=== PATIENT | female | born 1965 | race Caucasian/White ===

== ENCOUNTER 2024-03-08 18:32 | Emergency (ER) | payer SELFPAY ==
[2024-03-08] MEDS ORDERED: HYDROCODONE/APAP 5/325 MG TAB ONE (18:53)
--- NOTE | 2024-03-08 19:52 | RAD REPORT ---
EXAM DESCRIPTION: RAD - Femur Right - 03/08/2024 7:43 pm CLINICAL HISTORY: Leg pain FINDINGS: No fracture is seen. If patient continues to have symptoms to suggest an occult fracture then MRI would recommended
--- NOTE | 2024-03-08 19:53 | RAD REPORT ---
EXAM DESCRIPTION: RAD - Tib Fib Right - 03/08/2024 7:43 pm CLINICAL HISTORY: Right leg pain FINDINGS: No fracture is seen Large plantar calcaneal spur
--- NOTE | 2024-03-08 20:03 | ER ---
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 Coronavirus screen: Client denies travel out of the [place] in the last 14 days. At this time, the client does not indicate any symptoms associated with coronavirus-19. Ebola Screen: Patient denies travel to an Ebola-affected area in the 21 days before illness onset. Initial Sepsis Screen: Does the patient meet any 2 criteria? No. Patient's initial sepsis screen is negative. Does the patient have a suspected source of infection? No. Patient's initial sepsis screen is negative. Risk Assessment: Do you want to hurt yourself or someone else? Patient reports no desire to harm self or others. Onset of symptoms was March 08, 2024. 18:45 Method Of Arrival: Wheelchair ll1 18:45 Acuity: ELLEN 3 ll1 Triage Assessment: 18:47 General: Appears uncomfortable, Behavior is calm, cooperative, appropriate for age. ll1 Pain: Complains of pain in right leg Quality of pain is described as aching. Musculoskeletal: Circulation, motion, and sensation intact. Capillary refill < 3 seconds, Reports pain in right leg. Injury Description: Bruise. Historical: - Allergies: 18:49 Sulfa (Sulfonamide Antibiotics); ll1 18:49 Morphine; ll1 18:49 Dilaudid; ll1 18:49 Demerol; ll1 - PMHx: 18:49 Diabetes mellitus; chronic kidney; anoxic brain injury; ll1 - PSHx: 18:49 R eye SX; L knee SX x 2; R bicep repair; Tonsillectomy; hysterectomy; ll1 - Immunization history:: Adult Immunizations up to date. - Infectious Disease History:: Denies. - Social history:: Smoking status: Patient denies any tobacco usage or history of. Screenin:35 [facility] ED Fall Risk Assessment (Adult) History of falling in the last 3 months, tl4 including since admission Yes- single mechanical fall (1 pt) Confusion or Disorientation No (0 pts) Intoxicated or Sedated No (0 pts) Impaired Gait No (0 pts) Mobility Assist Device Used No (0 pt) Altered Elimination No (0 pt) Score/Fall Risk Level 0 - 2 = Low Risk Oriented to surroundings, Maintained a safe environment, Educated pt \T\ family on fall prevention, incl call for assistance when getting out of bed, Assessed \T\ reinforced patient's understanding of fall precautions. Abuse screen: Denies threats or abuse. Denies injuries from another. Nutritional screening: No deficits noted. Tuberculosis screening: No symptoms or risk factors identified. Assessment: 19:45 General: Appears in no apparent distress. Behavior is calm, cooperative. Neuro: Level tl4 of Consciousness is awake, alert, obeys commands, Oriented to person, place, time, situation, Moves all extremities. Full function. Cardiovascular: Capillary refill < 3 seconds Patient's skin is warm and dry. Respiratory: Airway is patent Respiratory effort is even, unlabored, Respiratory pattern is regular, symmetrical, Breath sounds are clear bilaterally. GI: No signs and/or symptoms were reported involving the gastrointestinal system. : No signs and/or symptoms were reported regarding the genitourinary system. EENT: No signs and/or symptoms were reported regarding the EENT system. Derm: No signs and/or symptoms reported regarding the dermatologic system. 20:34 Pain: Complains of pain in right leg. Musculoskeletal: Reports pain in right leg. tl4 20:36 Reassessment: Delay to discharge due to attempting to locate patient to give discharge tl4 paperwork. Unable to locate patient. Provider had given verbal discharge instructions to patient. Vital Signs: 18:48 BP 126 / 75; Pulse 80; Resp 17; Temp 97.5; Pulse Ox 98% on R/A; Height 5 ft. 6 in. ; ll1 Pain 7/10; 19:49 BP 115 / 76; Pulse 70; Resp 16; Pulse Ox 99% on R/A; tl4 18:48 Pain Scale: Adult ll1 ED Course: 18:36 Patient arrived in ED. mr 18:40 Rosalind Nuñez [facility]-C [facility]. kb 18:40 Bjorn Barajas MD is Attending Physician. kb 18:46 Triage completed. ll1 18:47 Arm band placed on Patient placed in an exam room, on a stretcher. ll1 19:45 Tib Fib Right XRAY In Process Unspecified. EDMS 19:45 Femur Right XRAY In Process Unspecified. EDMS 20:36 Patient has correct armband on for positive identification. Placed in gown. Bed in low tl4 position. Call light in reach. Side rails up X 1. Adult w/ patient. Provided Education on: ed process, call holder. Door closed. Noise minimized. Moved to private room. Warm blanket given. Pillow given. 20:36 No provider procedures requiring assistance completed. Patient did not have IV access tl4 during this emergency room visit. Administered Medications: 18:56 Drug: HYDROcodone-acetaminophen PO 5 mg-325 mg 1 tabs PO once {Note: RASS 0, pain ll1 710.} Route: PO; 20:32 Follow up: Response: No adverse reaction; Pain is decreased tl4 Medication: 20:35 VIS not applicable for this client. tl4 Outcome: 20:02 Discharge ordered by . paulette 20:36 Discharged to home tl4 20:36 Condition: stable 20:36 Discharge instructions given to patient, Instructed on discharge instructions, follow up and referral plans. Demonstrated understanding of instructions, follow-up care, 20:38 Patient left the ED. tl4 Signatures: Dispatcher [employer] Rosalind Jett, BIOINFORMATICS PROGRAMMER-C BIOINFORMATICS PROGRAMMER-Lala Min, Reg Reg mr SandhuLucio, RN RN ll1 Yusef Tapia RN RN tl4 Corrections: (The following items were deleted from the chart) 18:51 18:48 Resp 17bpm; Temp 97.5F; Height 5 ft. 6 in.; Pain 7/10, Adult; ll1 ll1
--- NOTE | 2024-03-08 20:03 | EDPHYS ---
Physician Documentation [facility] Name: Rimma Renee Age: 58 yrs Sex: Female : 1965 Arrival Date: 03/08/2024 Time: 18:32 Bed 9 Private MD: ED Physician Bjorn Barajas HPI: 03/08 20:01 This 58 yrs old Female presents to ER via Wheelchair with complaints of Fall Injury. kb 20:01 Pt is a 58 year old female who presents for right leg pain that started just lighter captain after kb missing last step on the stairs and falling. Denies any other pain. States she scraped her left leg but doesn't have pain there. . Historical: - Allergies: 18:49 Sulfa (Sulfonamide Antibiotics); ll1 18:49 Morphine; ll1 18:49 Dilaudid; ll1 18:49 Demerol; ll1 - PMHx: 18:49 Diabetes mellitus; chronic kidney; anoxic brain injury; ll1 - PSHx: 18:49 R eye SX; L knee SX x 2; R bicep repair; Tonsillectomy; hysterectomy; ll1 - Immunization history:: Adult Immunizations up to date. - Infectious Disease History:: Denies. - Social history:: Smoking status: Patient denies any tobacco usage or history of. ROS: 20:00 Constitutional: As per HPI kb Exam: 20:00 Constitutional: This is a well developed, well nourished patient who is awake, alert, kb and in no acute distress. Head/Face: Normocephalic, atraumatic. ENT: Moist Mucous membranes Cardiovascular: Regular rate Respiratory: Respirations even and unlabored. No increased work of breathing. Talking in full sentences Abdomen/GI: Soft, non-tender. No distention Skin: Warm, dry with normal turgor. Normal color. Neuro: Awake and alert, GCS 15, oriented to person, place, time, and situation. Moves all extremities. Normal gait. 20:00 Musculoskeletal/extremity: Extremities: grossly normal except: noted in the right leg: pain, tenderness, noted in the left burnett: abrasion, ROM: intact in all extremities, Circulation is intact in all extremities. Sensation intact. Weight bearing: can bear weight with assistance only, Vital Signs: 18:48 BP 126 / 75; Pulse 80; Resp 17; Temp 97.5; Pulse Ox 98% on R/A; Height 5 ft. 6 in. ; ll1 Pain 7/10; 19:49 BP 115 / 76; Pulse 70; Resp 16; Pulse Ox 99% on R/A; tl4 18:48 Pain Scale: Adult ll1 MDM: 18:40 Patient medically screened. kb 20:00 Differential diagnosis: abrasion, contusion, fracture, sprain, strain. Data reviewed: kb vital signs, nurses notes. Historians other than the Patient: Family Member: family. Counseling: I had a detailed discussion with the patient and/or guardian regarding the historical points, exam findings, and any diagnostic results supporting the discharge/admit diagnosis, radiology results, the need for outpatient follow up, a family practitioner, to return to the emergency department if symptoms worsen or persist or if there are any questions or concerns that arise at home. 03/08 18:49 Order name: Tib Fib Right XRAY; Complete Time: 19:58 kb 03/08 18:49 Order name: Femur Right XRAY; Complete Time: 19:53 kb Administered Medications: 18:56 Drug: HYDROcodone-acetaminophen PO 5 mg-325 mg 1 tabs PO once {Note: RASS 0, pain ll1 7/10.} Route: PO; 20:32 Follow up: Response: No adverse reaction; Pain is decreased tl4 Disposition: 03/09 08:59 Co-signature as Attending Physician, Bjorn Barajas MD I reviewed the patient's care rt provided by the Advanced Practice Provider and agree with the diagnosis and treatment plan. Disposition Summary: 03/08/24 20:02 Discharge Ordered Notes: Location: Home kb Condition: Stable kb Diagnosis - Pain in right leg kb Followup: kb - With: Emergency Department - When: As needed - Reason: Worsening of condition Followup: kb - With: Private Physician - When: 2 - 3 days - Reason: Recheck today's complaints, Continuance of care, Re-evaluation by your physician Discharge Instructions: - Discharge Summary Sheet kb - Musculoskeletal Pain kb Forms: - Medication Reconciliation Form kb - Antibiotic Education kb - Prescription Opioid Use kb - Patient Portal Instructions kb - Leadership Thank You Letter kb Signatures: Dispatcher [employer] Rosalind Jett, TARA-C TARA-Lucio Prater RN RN ll1 Bjorn Barajas MD MD rt Yusef Tapia RN tl4 Corrections: (The following items were deleted from the chart) 03/08 18:49 18:49 Femur Right+RAD.RAD.BRZ ordered. EDMS EDMS
[2024-03-08 21:38] VITALS: BP 115/76; TEMP 97.5; O2SAT 99
== END 2024-03-08 20:38 | disposition home or self-care (01) ==
LOC: EDBD 18:32 → ER 18:32
DX: M79.604 Pain in right leg (principal); E11.9 Type 2 diabetes mellitus without complications; Z88.2 Allergy status to sulfonamides; Z88.5 Allergy status to narcotic agent; Z88.8 Allergy status to other drugs, medicaments and biological substances
CPT/HCPCS: 99283

== ENCOUNTER 2024-04-24 01:09 | Emergency (ER) | payer SELFPAY ==
[2024-04-24 02:50] LABS: Urine Bacteria <20 /HPF (<20); Urine Bilirubin NEGATIVE (Negative); Urine Blood Trace (Negative); Urine Clarity Extremely Turbid (Clear); Urine Color Light-Yellow (Yellow); Urine Crystals Unidentified Few /HPF (None Seen); Urine Culture Reflex Order REFLEXED; Urine Glucose 4+ (Over) (Negative); Urine Ketones NEGATIVE (Negative); Urine Microscopic Reflex YN ORDER UMIC; Urine Mucus Slight /HPF (None Seen); Urine Nitrite NEGATIVE (Negative); Urine Protein NEGATIVE (Negative); Urine Urobilinogen Normal (Normal); Urine WBC 20-50 /HPF (<5); Urine WBC Clump Few /HPF (None Seen); Urine Yeast (Budding) Moderate /HPF (None Seen)
[2024-04-24 03:37] LABS: Absolute Basophils 0.1 K/uL (0-0.5); Absolute Eosinophils 0.2 K/uL (0-0.5); Absolute Lymphocytes (CBC) 2.3 K/uL (0.7-4.9); Absolute Monocytes 0.9 K/uL (0.1-1.3); Absolute Neutrophil 8.2 K/uL (1.8-8.0); Basophils % 0.7 % (0-1.3); Eosinophils % 1.8 % (0-4.4); Hematocrit 38.1 % (36.0-45.0); Hemoglobin 12.5 g/dL (12.0-15.0); Lymphocytes % 19.4 % (15.3-44.8); MCHC 32.9 g/dL (32.0-36.0); MCV 85.3 fL (80-100); MPV 9.4 fL (7.6-11.3); Monocytes % 7.6 % (3.3-12.3); Neutrophils % 70.5 % (41.7-73.7); Nucleated Red Blood Cells % 0.1 % (0-0); Platelets 267 thou/uL (152-406); RBC Red Blood Cell Count 4.47 M/uL (3.86-4.86); Red Cell Distribution Width 13.6 % (12.1-15.2)
[2024-04-24 03:56] LABS: Albumin 3.5 g/dL (3.4-5.0); Albumin/Globulin Ratio 0.8 (1.1-1.8); Bilirubin Total 0.3 mg/dL (0.2-1.0); Globulin 4.2 g/dL (2.3-3.5); Protein, Total 7.7 g/dL (6.4-8.2)
[2024-04-24 03:57] LABS: SARS-CoV-2 Antigen CONTROL BLUE LINE VIS/BG OK; SARS-CoV-2 Antigen Rapid Res Negative (Negative)
[2024-04-24] MEDS ORDERED: CEPHALEXIN 250 MG CAP ONE (06:32)
--- NOTE | 2024-04-24 06:33 | ER ---
Nurse's Notes [facility] Name: Rimma Renee Age: 58 yrs Sex: Female : 1965 Arrival Date: 04/24/2024 Time: 01:09 Bed 11 Private MD: Diagnosis: UTI/ Urinary tract infection, site not specified;Cough, Dizziness, Dysuria Presentation: 04/24 01:30 Chief complaint: Patient states: pain urination with urination cpugh and dizziness x 3 kl days. Coronavirus screen: Vaccine status: Patient reports receiving the 2nd dose of the covid vaccine. Ebola Screen: Patient negative for fever greater than or equal to 101.5 degrees Fahrenheit, and additional compatible Ebola Virus Disease symptoms. Initial Sepsis Screen: Does the patient meet any 2 criteria? No. Patient's initial sepsis screen is negative. Does the patient have a suspected source of infection? No. Patient's initial sepsis screen is negative. Risk Assessment: Do you want to hurt yourself or someone else? Patient reports no desire to harm self or others. 01:30 Method Of Arrival: Ambulatory 01:30 Acuity: ELLEN 3 kl Triage Assessment: 01:34 General: Appears in no apparent distress. Behavior is calm, cooperative. Pain: Complains of pain in suprapubic area Aggravated by urinating. : Reports burning with urination, pain urgency, urinary frequency. Historical: - Allergies: 01:33 Demerol; kl 01:33 Dilaudid; kl 01:33 Morphine; kl 01:33 Sulfa (Sulfonamide Antibiotics); kl - Home Meds: 01:33 Lantus 30 units Sub-Q daily [Active]; Ozempic 1 mg/dose (4 mg/3 mL) subcutaneous Pen kl Injector [Active]; - PMHx: 01:33 anoxic brain injury; chronic kidney; diabetes mellitus; kl - PSHx: 01:33 hysterectomy; L knee SX x 2; R bicep repair; R eye SX; Tonsillectomy; kl - Immunization history:: Adult Immunizations Client reports receiving the 2nd dose of the Covid vaccine, Flu vaccine is up to date. - Infectious Disease History:: Denies. - Social history:: Smoking status: Patient denies any tobacco usage or history of. - Family history:: not pertinent. Screenin:12 [facility] ED Fall Risk Assessment (Adult) History of falling in the last 3 months, jb4 including since admission No falls in past 3 months (0 pts) Confusion or Disorientation No (0 pts) Intoxicated or Sedated No (0 pts) Impaired Gait No (0 pts) Mobility Assist Device Used No (0 pt) Altered Elimination No (0 pt) Score/Fall Risk Level 0 - 2 = Low Risk Oriented to surroundings, Maintained a safe environment. Abuse screen: Denies threats or abuse. Nutritional screening: No deficits noted. Tuberculosis screening: No symptoms or risk factors identified. Assessment: 02:00 Reassessment: Patient appears in no apparent distress at this time. Patient and/or jb4 family updated on plan of care and expected duration. Pain level reassessed. Patient is alert, oriented x 3, equal unlabored respirations, skin warm/dry/pink. 03:00 Reassessment: Patient appears in no apparent distress at this time. Patient and/or jb4 family updated on plan of care and expected duration. Pain level reassessed. Patient is alert, oriented x 3, equal unlabored respirations, skin warm/dry/pink. 04:00 Reassessment: Patient appears in no apparent distress at this time. Patient and/or jb4 family updated on plan of care and expected duration. Pain level reassessed. Patient is alert, oriented x 3, equal unlabored respirations, skin warm/dry/pink. 05:00 Reassessment: Patient appears in no apparent distress at this time. Patient and/or jb4 family updated on plan of care and expected duration. Pain level reassessed. Patient is alert, oriented x 3, equal unlabored respirations, skin warm/dry/pink. Vital Signs: 01:30 BP 122 / 75; Pulse 96; Resp 18; Temp 98.5; Pulse Ox 95% ; Weight 86.77 kg; Height 5 ft. kl 6 in. ; Pain 7/10; 05:00 BP 135 / 87; Pulse 92; Resp 16; Pulse Ox 97% on R/A; jb4 01:30 Body Mass Index 30.88 (86.77 kg, 167.64 cm) kl 01:30 Pain Scale: Adult kl Bharat Coma Score: 22:30 Eye Response: spontaneous(4). Motor Response: obeys commands(6). Verbal Response: sp4 oriented(5). Total: 15. ED Course: 01:17 Patient arrived in ED. gm2 01:25 Cooper Castro MD is Attending Physician. sp4 01:33 Triage completed. kl 02:04 Chest Pa And Lat (2 Views) XRAY In Process Unspecified. EDMS 02:37 Urinalysis w/ reflexes Sent. kl 03:21 CBC with Diff Sent. vk 03:21 CMP Sent. vk 03:21 Lipase Sent. vk 03:21 SARS RAPID Sent. vk 07:12 No provider procedures requiring assistance completed. IV discontinued, intact, jb4 bleeding controlled, No redness/swelling at site. Pressure dressing applied. 07:12 Patient has correct armband on for positive identification. Bed in low position. Call jb4 light in reach. Side rails up X 1. Provided Education on: discharge instructions.. Administered Medications: 06:38 Drug: Cephalexin PO 500 mg PO once Route: PO; jb4 Outcome: 06:32 Discharge ordered by MD. sp4 07:12 Discharged to home ambulatory, jb4 07:12 Condition: stable 07:12 Discharge instructions given to patient, Instructed on discharge instructions, follow up and referral plans. medication usage, Demonstrated understanding of instructions, follow-up care, medications, Prescriptions given X 3, 07:13 Patient left the ED. jb4 Signatures: Dispatcher [employer] Gina Beaulieu, Chad Lorenzo RN, RN RN jbCooper Garrido MD MD sp4 Mitchell, Ginger 2 Kaity Kong
--- NOTE | 2024-04-24 06:33 | EDPHYS ---
Physician Documentation [facility] Name: Rimma Renee Age: 58 yrs Sex: Female : 1965 Arrival Date: 04/24/2024 Time: 01:09 Bed 11 Private MD: ED Physician Cooper Castro HPI: 04/24 01:26 This 58 yrs old Other Race Female presents to ER via Unassigned with complaints of sp4 Cough, Dizziness, Pain With Urination. 22:30 58-year-old female presents with acute cough dizziness and pain with urination.. . sp4 Historical: - Allergies: 01:33 Demerol; kl 01:33 Dilaudid; kl 01:33 Morphine; kl 01:33 Sulfa (Sulfonamide Antibiotics); kl - Home Meds: 01:33 Lantus 30 units Sub-Q daily [Active]; Ozempic 1 mg/dose (4 mg/3 mL) subcutaneous Pen kl Injector [Active]; - PMHx: 01:33 anoxic brain injury; chronic kidney; diabetes mellitus; kl - PSHx: 01:33 hysterectomy; L knee SX x 2; R bicep repair; R eye SX; Tonsillectomy; kl - Immunization history:: Adult Immunizations Client reports receiving the 2nd dose of the Covid vaccine, Flu vaccine is up to date. - Infectious Disease History:: Denies. - Social history:: Smoking status: Patient denies any tobacco usage or history of. - Family history:: not pertinent. ROS: 22:30 Constitutional: Negative for fever, chills, and weight loss, positive for cough, sp4 dizziness, pain with urination. 22:30 All other systems are negative, Exam: 22:30 Constitutional: This is a well developed, well nourished patient who is awake, alert, sp4 and in no acute distress. Head/Face: Normocephalic, atraumatic. Eyes: Pupils equal round and reactive to light, extra-ocular motions intact. Lids and lashes normal. Conjunctiva and sclera are not injected. Cornea within normal limits. Periorbital areas with no swelling, redness, or edema. ENT: Nares patent. No nasal discharge, no septal abnormalities noted. Tympanic membranes are normal and external auditory canals are clear. Oropharynx with no redness, swelling, or masses, exudates, or evidence of obstruction, uvula midline. Mucous membranes moist. Neck: Trachea midline, no thyromegaly or masses palpated, and no cervical lymphadenopathy. Supple, full range of motion without nuchal rigidity, or vertebral point tenderness. Chest/axilla: Normal chest wall appearance and motion. Nontender with no deformity. No lesions are appreciated. Cardiovascular: Regular rate and rhythm with a normal S1 and S2. No gallops, murmurs, or rubs. Normal PMI, no JVD. No pulse deficits. Respiratory: Lungs have equal breath sounds bilaterally, clear to auscultation and percussion. No rales, rhonchi or wheezes noted. No increased work of breathing, no retractions or nasal flaring. Abdomen/GI: Soft, with normal bowel sounds. No distension or tympany. No guarding or rebound. No evidence of tenderness throughout. Back: No spinal tenderness. No costovertebral tenderness. Skin: Warm, dry with normal turgor. Normal color with no rashes, no lesions, and no evidence of cellulitis. MS/ Extremity: Pulses equal, no cyanosis. Neurovascular intact. Full, normal range of motion. Neuro: Awake and alert, GCS 15, oriented to person, place, time, and situation. Cranial nerves II-XII grossly intact. Motor strength 5/5 in all extremities. Sensory grossly intact. Psych: Awake, alert, with orientation to person, place and time. Behavior, mood, and affect are within normal limits Vital Signs: 01:30 BP 122 / 75; Pulse 96; Resp 18; Temp 98.5; Pulse Ox 95% ; Weight 86.77 kg; Height 5 ft. kl 6 in. ; Pain 7/10; 05:00 BP 135 / 87; Pulse 92; Resp 16; Pulse Ox 97% on R/A; jb4 01:30 Body Mass Index 30.88 (86.77 kg, 167.64 cm) kl 01:30 Pain Scale: Adult kl Bharat Coma Score: 22:30 Eye Response: spontaneous(4). Motor Response: obeys commands(6). Verbal Response: sp4 oriented(5). Total: 15. MDM: 01:27 Patient medically screened. sp4 06:23 ED course: CLINICAL HISTORY: Cough. COMPARISON: XR Chest 04/08/2024. TECHNIQUE: XR sp4 CHEST 2 VIEWS 04/24/2024 1:27 AM CDT FINDINGS: Cardiac silhouette is normal in size. Lungs are clear without consolidation, atelectasis, mass or edema. There is no pleural effusion. There is no pneumothorax. There are no acute osseous findings. IMPRESSION: Clear lungs. . 22:30 Differential Diagnosis: Obstructed Airway Bronchitis Influenza Upper Respiratory sp4 Infection. Data reviewed: vital signs, nurses notes, lab test result(s), radiologic studies, plain films. Consideration of Admission/Observation Escalation of care including admission/observation considered. ED course: Patient stable for discharge home with cephalexin for UTI.. 04/24 01:27 Order name: CBC with Diff; Complete Time: 06:18 sp4 04/24 01:27 Order name: CMP; Complete Time: 06:18 sp4 04/24 01:27 Order name: Lipase; Complete Time: 06:18 sp4 04/24 01:27 Order name: Urinalysis w/ reflexes; Complete Time: 06:18 sp4 04/24 01:27 Order name: SARS RAPID; Complete Time: 06:18 sp4 04/24 02:53 Order name: Urine Culture EDMS 04/24 01:27 Order name: Chest Pa And Lat (2 Views) XRAY sp4 04/24 01:27 Order name: IV Saline Lock; Complete Time: 03:21 sp4 04/24 01:27 Order name: Labs collected and sent; Complete Time: 03:21 sp4 Administered Medications: 06:38 Drug: Cephalexin PO 500 mg PO once Route: PO; jb4 Disposition Summary: 04/24/24 06:32 Discharge Ordered Notes: Location: Home sp4 Problem: new sp4 Symptoms: have improved sp4 Condition: Stable sp4 Diagnosis - UTI/ Urinary tract infection, site not specified sp4 - Cough, Dizziness, Dysuria sp4 Followup: sp4 - With: Private Physician - When: 7 - 10 days - Reason: Recheck today's complaints Discharge Instructions: - Discharge Summary Sheet sp4 - Urinary Tract Infection, Adult, [id number] sp4 - Acute Bronchitis, Adult, [id number] sp4 Forms: - Patient Portal Instructions sp4 Prescriptions: - dextromethorphan-guaifenesin 30-600 mg Oral Tablet, Extended Release 12 hr - take 1 tablet ORAL route every 12 hours PRN cough; 30 tablet; Refills: 0, sp4 Product Selection Permitted - Cephalexin 500 mg Oral Capsule - take 1 capsule ORAL route every 12 hours for 10 days; 20 capsule; Refills: 0, sp4 Product Selection Permitted - ondansetron 8 mg Oral Tablet,disintegrating - take 1 tablet ORAL route every 8 hours PRN nausea; 30 tablet; Refills: 0, sp4 Product Selection Permitted Signatures: Dispatcher [employer] EDGina Wu RN RN kl Bryson, James, RN RN jb4 Cooper Castro MD MD sp4 Corrections: (The following items were deleted from the chart) 01: 01:27 CBC+H.LAB.BRZ ordered. EDMS EDMS 01: 01:27 COMPREHENSIVE METABOLIC PANEL+C.LAB.BRZ ordered. EDMS EDMS 01:27 01:27 LIPASE+C.LAB.BRZ ordered. EDMS EDMS 01:27 01:27 Urinalysis+U.LAB.BRZ ordered. EDMS EDMS
[2024-04-24 07:53] VITALS: BP 135/87; TEMP 98.5; O2SAT 97
--- NOTE | 2024-04-24 11:16 | RAD REPORT ---
EXAM DESCRIPTION: RAD - Chest Pa And Lat (2 Views) - 04/24/2024 2:02 am CLINICAL HISTORY: Cough. COMPARISON: XR Chest 04/08/2024. TECHNIQUE: XR CHEST 2 VIEWS 04/24/2024 1:27 AM CDT FINDINGS: Cardiac silhouette is normal in size. Lungs are clear without consolidation, atelectasis, mass or edema. There is no pleural effusion. There is no pneumothorax. There are no acute osseous fin dings. IMPRESSION: Clear lungs. Electronically signed by: Sarwat Vilchis MD 04/24/2024 04:16 AM CDT RP Due to temporary technical issues with the PACS/Fluency reporting system, reports are being signed by the in house radiologist without review as a courtesy to ensure prompt reporting. The interpreting r adiologist is fully responsible for the content of the report.
== END 2024-04-24 07:13 | disposition home or self-care (01) ==
LOC: ER 01:09
DX: N39.0 Urinary tract infection, site not specified (principal); R05.9 Cough, unspecified; R42 Dizziness and giddiness
CPT/HCPCS: 36415; 71046; 80053; 81001; 83690; 85025; 87086; 87088; 87811

== ENCOUNTER 2024-05-09 15:42 | Emergency (ER) | payer OTHER, SELFPAY ==
[2024-05-09 16:24] LABS: Absolute Basophils 0.1 K/uL (0-0.5); Absolute Eosinophils 0.2 K/uL (0-0.5); Absolute Monocytes 0.9 K/uL (0.1-1.3); Absolute Neutrophil 7.3 K/uL (1.8-8.0); Basophils % 0.9 % (0-1.3); Eosinophils % 2.2 % (0-4.4); Hematocrit 40.4 % (36.0-45.0); Hemoglobin 13.3 g/dL (12.0-15.0); Lymphocytes % 19.4 % (15.3-44.8); MCH 28.1 pg (27.0-35.0); MCHC 32.8 g/dL (32.0-36.0); MCV 85.6 fL (80-100); MPV 9.2 fL (7.6-11.3); Monocytes % 8.1 % (3.3-12.3); Neutrophils % 69.4 % (41.7-73.7); Platelets 288 thou/uL (152-406); RBC Red Blood Cell Count 4.72 M/uL (3.86-4.86)
[2024-05-09 16:35] LABS: PT Prothrombin Time 11.4 SECONDS (9.4-12.5); PTT, Activated Partial Thromb 39.3 SECONDS (24.3-36.9); Protime INR 1.02
[2024-05-09 16:44] LABS: Albumin 3.5 g/dL (3.4-5.0); Albumin/Globulin Ratio 0.9 (1.1-1.8); Bilirubin Total 0.3 mg/dL (0.2-1.0); Globulin 4.1 g/dL (2.3-3.5); Protein, Total 7.6 g/dL (6.4-8.2)
[2024-05-09 17:01] LABS: Specific Gravity 1.019 (1.005-1.030); Sqamous Epithelial <5 /HPF (None Seen); Urine Bacteria <20 /HPF (<20); Urine Bilirubin NEGATIVE (Negative); Urine Blood Negative (Negative); Urine Clarity Extremely Turbid (Clear); Urine Color Yellow (Yellow); Urine Crystals Unidentified Few /HPF (None Seen); Urine Culture Reflex Order REFLEXED; Urine Glucose 4+ (Over) (Negative); Urine Ketones NEGATIVE (Negative); Urine Micro Reflex YN NO BILL MICROSCOPIC; Urine Mucus Slight /HPF (None Seen); Urine Nitrite NEGATIVE (Negative); Urine Protein 1+ (Negative); Urine RBC 21-50 /HPF (None Seen); Urine Urobilinogen Normal (Normal); Urine WBC >50 /HPF (<5); Urine WBC Clump Few /HPF (None Seen); Urine Yeast (Budding) Occasional /HPF (None Seen); Urine pH 5.5 (5.0-7.0)
--- NOTE | 2024-05-09 17:21 | RAD REPORT ---
EXAM DESCRIPTION: CT - Abdomen Pelvis Wo Contrast - 05/09/2024 5:15 pm CLINICAL HISTORY: Abdominal pain. FLANK PAIN COMPARISON: No comparisons TECHNIQUE: CT imaging of the abdomen and pelvis was performed without contrast. Solid organ, bowel a nd vascular assessment is limited due to lack of IV and oral contrast. All CT scans are performed using dose optimization technique as appropriate and may include automated exposure control or mA/KV adjustment according to patient size. FINDINGS: The lower lung bender are clear.Cholecystectomy per postsurgical changes about the stomach . The liver, spleen, pancreas, adrenal glands and kidneys are within normal limits for a limited non-co ntrast examination. No bowel obstruction, free air, free fluid or abscess. There is a large amount of stool in the colon. The appendix is normal. Moderate thickening of the urinary bladder. The osseous structures are within normal limits. IMPRESSION: Moderate bladder wall thickening likely related cystitis A limited non-contrast examination was performed as detailed.
[2024-05-09] MEDS ORDERED: CEFTRIAXONE 1000 MG/VIAL ONE (17:44)
[2024-05-09] MEDS ORDERED: FLUCONAZOLE 100 MG TAB ONE (17:44)
[2024-05-09] MEDS ORDERED: NA CHLORIDE 0.9% 1,000 ML ONE (17:44)
--- NOTE | 2024-05-09 19:00 | ER ---
Nurse's Notes [facility] Name: Rimma Renee Age: 58 yrs Sex: Female : 1965 Arrival Date: 05/09/2024 Time: 15:42 Bed 8 Private MD: Diagnosis: UTI/ Urinary tract infection, site not specified Presentation: 05/09 15:51 Chief complaint: Patient states: Bladder infection last week, antibiotics arent helping ll1 yet. + oliguria, urinary frequency, and dysuria. Coronavirus screen: Client denies travel out of the [place] in the last 14 days. At this time, the client does not indicate any symptoms associated with coronavirus-19. Ebola Screen: Patient denies travel to an Ebola-affected area in the 21 days before illness onset. Initial Sepsis Screen: Does the patient meet any 2 criteria? No. Patient's initial sepsis screen is negative. Does the patient have a suspected source of infection? No. Patient's initial sepsis screen is negative. Risk Assessment: Do you want to hurt yourself or someone else? Patient reports no desire to harm self or others. Onset of symptoms was April 08, 2024. 15:51 Method Of Arrival: Ambulatory ll1 15:51 Acuity: ELLEN 3 ll1 Triage Assessment: 15:51 General: Appears in no apparent distress. Behavior is calm, cooperative, appropriate iw for age. Pain: Denies pain. Neuro: No deficits noted. : Reports burning with urination, pain with urination, urgency, urinary frequency. Historical: - Allergies: 15:51 Demerol; ll1 15:51 Dilaudid; ll1 15:51 Morphine; ll1 15:51 Sulfa (Sulfonamide Antibiotics); ll1 - PMHx: 15:51 anoxic brain injury; chronic kidney; chronic kidney disease (Tonsillectomy); diabetes ll1 mellitus; - PSHx: 15:51 hysterectomy; L knee SX x 2; R bicep repair; R eye SX; Tonsillectomy; ll1 - Immunization history:: Adult Immunizations up to date. - Social history:: Smoking status: Patient denies any tobacco usage or history of. Screenin:55 Abuse screen: Denies threats or abuse. Denies injuries from another. Nutritional ph screening: No deficits noted. Tuberculosis screening: No symptoms or risk factors identified. 18:06 [facility] ED Fall Risk Assessment (Adult) History of falling in the last 3 months, ph including since admission No falls in past 3 months (0 pts) Confusion or Disorientation No (0 pts) Intoxicated or Sedated No (0 pts) Impaired Gait No (0 pts) Mobility Assist Device Used No (0 pt) Altered Elimination No (0 pt) Score/Fall Risk Level 0 - 2 = Low Risk Oriented to surroundings, Maintained a safe environment, Hourly rounding (assess needs \T\ fall precautionary measures) done. Assessment: 18:05 General: Appears in no apparent distress. comfortable, Behavior is calm, cooperative. ph Pain: Complains of pain in pelvis. Neuro: Level of Consciousness is awake, alert, obeys commands, Oriented to person, place, time, situation. Cardiovascular: Capillary refill < 3 seconds in bilateral fingers Patient's skin is warm and dry. Respiratory: Airway is patent Respiratory effort is even, unlabored, Respiratory pattern is regular, symmetrical. GI: No signs and/or symptoms were reported involving the gastrointestinal system. : Reports burning with urination, pain with urination, urinary frequency, vaginal itching. Derm: Skin is pink, warm \T\ dry. 19:22 Reassessment: Patient appears in no apparent distress at this time. Patient and/or jb4 family updated on plan of care and expected duration. Pain level reassessed. Patient is alert, oriented x 3, equal unlabored respirations, skin warm/dry/pink. Vital Signs: 15:51 BP 172 / 106; Pulse 103; Resp 18; Temp 97; Pulse Ox 96% ; Height 5 ft. 6 in. ; Pain ll1 5/10; 18:07 BP 140 / 79; Pulse 95; Resp 18; Pulse Ox 95% on R/A; ph 15:51 Pain Scale: Adult ll1 ED Course: 15:46 Patient arrived in ED. ra3 15:47 Damaris Villaseñor PA-C is PHCP. sb4 15:47 Ernst Church DO is Attending Physician. sb4 15:51 Arm band placed on. iw 15:54 Triage completed. ll1 16:20 Initial lab(s) drawn, by ED staff, sent to lab. Urine collected: clean catch specimen. ph Inserted saline lock: 20 gauge in right antecubital area, using aseptic technique. Blood collected. Flushed with 10 mL NS. 16:54 Carmen Xie, RN is Primary Nurse. ph 17:17 CT Abd/Pelvis - Without Contrast In Process Unspecified. EDMS 18:06 Patient has correct armband on for positive identification. Placed in gown. Bed in low ph position. Call light in reach. Side rails up X2. Pulse ox on. NIBP on. Door closed. Noise minimized. Lights dimmed. Warm blanket given. 18:08 No provider procedures requiring assistance completed. ph 19:22 Provided Education on: discharge instructions.. jb4 19:22 IV discontinued, intact, bleeding controlled, No redness/swelling at site. Pressure jb4 dressing applied. Administered Medications: 18:04 Drug: Rocephin IV 1 grams IV at calculated rate once; Given slow IV push per pharmacy ph instructions Route: IV; Rate: calculated rate; Site: right antecubital; 19:28 Follow up: Response: No adverse reaction; IV Status: Completed infusion; IV Intake: ph 1000ml 18:04 Drug: NS 0.9% IV 1000 ml IV at 1 bolus Per protocol; 1000 mL bolus Route: IV; Rate: 1 ph bolus; Site: right antecubital; 19:20 Follow up: Response: No adverse reaction; IV Status: Completed infusion; IV Intake: jb4 1000ml 18:04 Drug: Fluconazole PO 200 mg PO once Route: PO; ph 19:00 Follow up: Response: No adverse reaction jb4 Medication: 18:06 VIS not applicable for this client. ph Intake: 19:20 IV: 1000ml; Total: 1000ml. jb4 19:28 IV: 1000ml; Total: 2000ml. ph Outcome: 19:00 Discharge ordered by . sb4 19:22 Discharged to home ambulatory, jb4 19:22 Condition: stable 19:22 Discharge instructions given to patient, Instructed on discharge instructions, follow up and referral plans. medication usage, Demonstrated understanding of instructions, follow-up care, medications, Prescriptions given X 1, 19:23 Patient left the ED. jb4 Addendum: 05/16/2024 08:29 Addendum: Culture Results: Positive urine culture. Bacteria is resistant to, has j l7 intermediate sensitivity, or is not tested against prescribed antibiotics. Report given to BREONNA for further evaluation and then to programming instructor for follow up with patient. Phone call Attempt #1 Spoke to pt, symptoms have improved and she will follow up with PCP after she had completed her prescribed antibiotics. Signatures: Dispatcher [employer] Maribell Robbins, Carmen Kumar RN, RN RN ph Chad Escalante RN RN jb4 Toya Bonilla RN RN jl7 Lucio Sandhu RN RN ll1 Damaris Villaseñor, BRANDON PAMirna [email or web address] Leslie Clement ra3 Corrections: (The following items were deleted from the chart) 05/09 18:07 18:07 BP 140 / 79; Pulse 95bpm; Resp 18bpm; Pulse Ox 93% RA; ph ph
--- NOTE | 2024-05-09 19:00 | EDPHYS ---
Physician Documentation [facility] Name: Rimma Renee Age: 58 yrs Sex: Female : 1965 Arrival Date: 05/09/2024 Time: 15:42 Bed 8 Private MD: ED Physician Ernst Church HPI: 05/09 16:05 This 58 yrs old Female presents to ER via Ambulatory with complaints of Urinary Problem.sb4 19:03 diagnosed with UTI 2 weeks ago, prescribed keflex. symptoms persist. reports low back sb4 pain but thinks it is more musculoskeletal. denies any fever, chills, nausea, vomiting, diarrhea. states she has had issues with UTIs in the past. Historical: - Allergies: 15:51 Demerol; ll1 15:51 Dilaudid; ll1 15:51 Morphine; ll1 15:51 Sulfa (Sulfonamide Antibiotics); ll1 - PMHx: 15:51 anoxic brain injury; chronic kidney; chronic kidney disease (Tonsillectomy); diabetes ll1 mellitus; - PSHx: 15:51 hysterectomy; L knee SX x 2; R bicep repair; R eye SX; Tonsillectomy; ll1 - Immunization history:: Adult Immunizations up to date. - Social history:: Smoking status: Patient denies any tobacco usage or history of. ROS: 19:03 Constitutional: Negative for fever, chills, and weight loss, sb4 19:03 : Positive for urinary frequency, burning with urination, 19:03 All other systems are negative, Exam: 19:03 Constitutional: This is a well developed, well nourished patient who is awake, alert, sb4 and in no acute distress. Head/Face: Normocephalic, atraumatic. Eyes: Extra-ocular motions intact. Periorbital areas with no swelling, redness, or edema. ENT: Mucous membranes moist. Cardiovascular: Regular rate and rhythm with a normal S1 and S2. Respiratory: Lungs have equal breath sounds bilaterally, clear to auscultation and percussion. No rales, rhonchi or wheezes noted. No increased work of breathing, no retractions or nasal flaring. Abdomen/GI: Soft, non-tender, no distension. Skin: Warm, dry with normal turgor. Normal color with no rashes, no lesions, and no evidence of cellulitis. Vital Signs: 15:51 BP 172 / 106; Pulse 103; Resp 18; Temp 97; Pulse Ox 96% ; Height 5 ft. 6 in. ; Pain ll1 5/10; 18:07 BP 140 / 79; Pulse 95; Resp 18; Pulse Ox 95% on R/A; ph 15:51 Pain Scale: Adult ll1 MDM: 15:47 Patient medically screened. sb4 19:05 Data reviewed: vital signs, nurses notes, and as a result, I will discharge patient. sb4 Counseling: I had a detailed discussion with the patient and/or guardian regarding the historical points, exam findings, and any diagnostic results supporting the discharge/admit diagnosis, the presence of at least one elevated blood pressure reading (>120/80) during this emergency department visit, lab results, radiology results, the need for outpatient follow up, for definitive care, to return to the emergency department if symptoms worsen or persist or if there are any questions or concerns that arise at home. 05/09 15:57 Order name: UAM; Complete Time: 17:04 [facility] 05/09 15:57 Order name: Urine Culture [facility] 05/09 16:05 Order name: Blood Culture Adult (2) [facility] 05/09 16:05 Order name: CBC with Diff; Complete Time: 16:33 [facility] 05/09 16:05 Order name: CMP; Complete Time: 16:46 [facility] 05/09 16:05 Order name: Lactate w/ 2H reflex if indic.; Complete Time: 17:05 [facility] 05/09 16:05 Order name: Protime (+inr); Complete Time: 16:37 [facility] 05/09 16:05 Order name: Ptt, Activated; Complete Time: 16:37 [facility] 05/09 17:05 Order name: CT Abd/Pelvis - Without Contrast [facility] 05/09 16:05 Order name: Accucheck; Complete Time: 16:55 [facility] 05/09 16:05 Order name: Cardiac monitoring; Complete Time: 16:55 [facility] 05/09 16:05 Order name: IV Saline Lock - Large Bore; Complete Time: 16:55 [facility] 05/09 16:05 Order name: Labs collected and sent; Complete Time: 16:55 [facility] 05/09 16:05 Order name: O2 Per Protocol; Complete Time: 16:55 sb4 05/09 16:05 Order name: O2 Sat Monitoring; Complete Time: 16:55 sb4 05/09 16:05 Order name: Vital Signs; Complete Time: 16:55 sb4 Administered Medications: 18:04 Drug: Rocephin IV 1 grams IV at calculated rate once; Given slow IV push per pharmacy ph instructions Route: IV; Rate: calculated rate; Site: right antecubital; 19:28 Follow up: Response: No adverse reaction; IV Status: Completed infusion; IV Intake: ph 1000ml 18:04 Drug: NS 0.9% IV 1000 ml IV at 1 bolus Per protocol; 1000 mL bolus Route: IV; Rate: 1 ph bolus; Site: right antecubital; 19:20 Follow up: Response: No adverse reaction; IV Status: Completed infusion; IV Intake: jb4 1000ml 18:04 Drug: Fluconazole PO 200 mg PO once Route: PO; ph 19:00 Follow up: Response: No adverse reaction jb4 Disposition: 18:58 I was immediately available on-site in the Emergency Department for consultation in the ms3 care of the patient. Disposition Summary: 05/09/24 19:00 Discharge Ordered Notes: Location: Home sb4 Problem: new sb4 Symptoms: have improved sb4 Condition: Stable sb4 Diagnosis - UTI/ Urinary tract infection, site not specified sb4 Followup: sb4 - With: Emergency Department - When: As needed - Reason: Fever > 102 F, Worsening of condition Discharge Instructions: - Discharge Summary Sheet sb4 - Urinary Tract Infection, Adult, [id number] sb4 Forms: - Antibiotic Education sb4 - Patient Portal Instructions sb4 - Leadership Thank You Letter sb4 Prescriptions: - Cipro 500 mg Oral Tablet - take 1 tablet ORAL route every 12 hours for 7 days; 14 tablet; Refills: 0, sb4 Product Selection Permitted Signatures: Dispatcher [employer] EDMS Carmen Xie RN RN Lucio Hall RN RN ll1 Ernst Church DO DO ms3 Damaris Villaseñor PA-C PA-C sb4 Chad Escalante RN jb4 Corrections: (The following items were deleted from the chart) 16:06 16:06 BLOOD CULTURE*+BA.LAB.BRZ ordered. EDMS EDMS 16:06 16:06 CBC+H.LAB.BRZ ordered. EDMS EDMS 16:06 16:06 COMPREHENSIVE METABOLIC PANEL+C.LAB.BRZ ordered. EDMS EDMS 16:06 16:06 LACTATE+C.LAB.BRZ ordered. EDMS EDMS 16:06 16:06 PROTIME (+INR)+COAG.LAB.BRZ ordered. EDMS EDMS 16:06 16:06 PTT, ACTIVATED+COAG.LAB.BRZ ordered. EDMS EDMS 19:04 19:03 diagnosed with UTI 5 days ago. sb4 sb4
[2024-05-09 20:38] VITALS: TEMP 97
[2024-05-09 20:40] VITALS: BP 140/79; O2SAT 95
== END 2024-05-09 19:23 | disposition home or self-care (01) ==
LOC: ER 15:42
DX: N39.0 Urinary tract infection, site not specified (principal); E11.22 Type 2 diabetes mellitus with diabetic chronic kidney disease; N18.9 Chronic kidney disease, unspecified
CPT/HCPCS: 96365; 87040 ×2; 87088; 85025; 81001; 87086; 36415; 85610; 83605; 85730; 87077; 87186; 80053; 74176; 99284; J7030; J0696